=== PATIENT | female | born 1980 | race African-American/Black ===

== ENCOUNTER 2016-03-20 08:48 | Emergency (ER) | payer SELFPAY ==
[2016-03-20] MEDS ORDERED: TETRACAINE HCL 0.5% OPH SOLN 2 ML OS ONE (09:59)
--- NOTE | 2016-03-20 10:01 | ER Document Report ---
HPI - HPI Patient complains to provider of: left eye irritation Onset: Other - 2days Quality of pain: No pain Severity: None Pain Level: Denies Context: Patient presents to the emergency department with complaints of eye irritation redness for two days and matting this morning. Patient reports she was at work and possibly exposed to pinkeye. She reports she does not wear contacts or glasses. She denies other symptoms such as fever vomiting diarrhea. She denies trauma. Associated Symptoms: None Exacerbated by: Denies Relieved by: Denies Similar symptoms previously: No Recently seen / treated by doctor: No - REPRODUCTIVE Reproductive: DENIES: : - DERM Skin Color: Normal Past Medical History - General Information source: Patient - Social History Smoking Status: Current Every Day Smoker Chew tobacco use (# tins/day): No Frequency of alcohol use: None Drug Abuse: None Occupation: [employer] Lives with: Family Family History: Reviewed & Not Pertinent Patient has suicidal ideation: No Patient has homicidal ideation: No Pulmonary Medical History: Reports: Hx Asthma Renal/ Medical History: Denies: Hx Peritoneal Dialysis Past Surgical History: Reports: Hx Section, Hx Cholecystectomy, Hx Tubal Ligation - Immunizations Immunizations up to date: Yes Hx Diphtheria, Pertussis, Tetanus Vaccination: Yes Vertical Provider Document - CONSTITUTIONAL Agree With Documented VS: Yes Exam Limitations: No Limitations General Appearance: WD/WN, No Apparent Distress - INFECTION CONTROL TRAVEL OUTSIDE OF THE [place] IN LAST 30 DAYS: No - HEENT HEENT: Atraumatic, Normocephalic, PERRLA. negative: Conjuctival Injection - NECK Neck: Normal Inspection, Supple. negative: Lymphadenopathy-Left, Lymphadenopathy-Right - RESPIRATORY Respiratory: Breath Sounds Normal, No Respiratory Distress O2 Sat by Pulse Oximetry: 98 - CARDIOVASCULAR Cardiovascular: Regular Rate, Regular Rhythm - MUSCULOSKELETAL/EXTREMETIES Musculoskeletal/Extremeties: MAEW, FROM - NEURO Level of Consciousness: Awake, Alert, Appropriate Motor/Sensory: No Motor Deficit - DERM Integumentary: Warm, Dry Course - Re-evaluation Re-evalutation: 03/20/16 Beverley was instructed on erythromycin. Patient was also instructed on importance of monitoring her symptoms good hand washing and follow-up for recheck. She verbalized understanding. - Vital Signs Vital signs: Temp Pulse Resp BP Pulse Ox 97.8 F 75 20 150/82 H 98 03/20/16 08:54 03/20/16 08:54 03/20/16 08:54 03/20/16 08:54 03/20/16 08:54 Procedures - Eye Procedure Left Eye Irrigated w/ Saline (ccs): 10 Alcaine Drops Administered: Yes - tetracaine Fluorescein applied: Left Slit lamp used: No Notes: 03/20/16 17:57 No fluroscein uptake noted. pt reports eye irritation subsided after tetracaine Discharge - Discharge Clinical Impression: Irritation of left eye, elevated blood pressure Condition: Stable Disposition: HOME, SELF-CARE Instructions: Eyedrop Use ([facility]), Erythromycin ([facility]), Conjunctivitis ([facility]) Additional Instructions: *You have been evaluated for eye irritation, elevated blood pressure, bacterial conjunctivitis *Monitor your blood pressure. Your blood pressure was elevated today. This may be because you were anxious, in pain or because you need medication. It is important to follow up with your primary care provider for full evaluation. *Use erythromycin as prescribed- 1/2 inch ribbon twice a day for five days *Good hand washing- Do not reuse wash clothes or towels after wiping eyes *Follow up with an stud master/mistress within 3 days *Return to ED for worsening condition, changes, needs Forms: Elevated Blood Pressure, Return to Work
[2016-03-20] MEDS ORDERED: ERYTHROMYCIN 0.5% OPH OINTMENT 3.5 GM (ER DISP) OS SCH (10:30)
[2016-03-20 10:47] VITALS: BP 148/90
== END 2016-03-20 10:47 | disposition home or self-care (01) ==
LOC: ER 08:48
DX: H57.8 Other specified disorders of eye and adnexa (principal); R03.0 Elevated blood-pressure reading, without diagnosis of hypertension; F17.200 Nicotine dependence, unspecified, uncomplicated; Z98.51 Tubal ligation status; Z90.49 Acquired absence of other specified parts of digestive tract
CPT/HCPCS: 99283

== ENCOUNTER 2016-07-07 16:07 | Emergency (ER) | payer SELFPAY ==
[2016-07-07] MEDS ORDERED: KETOROLAC TROMETHAMINE 60 MG/2 ML SDV IM ONE (16:57)
--- NOTE | 2016-07-07 16:58 | ER Document Report ---
HPI - HPI Patient complains to provider of: right shoulder pain Onset: Yesterday Onset/Duration: Sudden Quality of pain: Achy Severity: Severe Pain Level: 4 Context: Patient presents to the emergency department with complaints of right shoulder pain. She reports she bent over to pick something up yesterday and felt pain in her right shoulder. She denies past medical history of injury to his shoulder. Patient complains of pain whenever moving the shoulder but reports at rest doesn't hurt as much. Associated Symptoms: None Exacerbated by: Movement Relieved by: Denies Similar symptoms previously: No Recently seen / treated by doctor: No - REPRODUCTIVE Reproductive: DENIES: : - DERM Skin Color: Normal Past Medical History - General Information source: Patient - Social History Smoking Status: Current Every Day Smoker Cigarette use (# per day): Yes Frequency of alcohol use: None Drug Abuse: None Occupation: [employer] Lives with: Family Family History: Reviewed & Not Pertinent Patient has suicidal ideation: No Patient has homicidal ideation: No Pulmonary Medical History: Reports: Hx Asthma Renal/ Medical History: Denies: Hx Peritoneal Dialysis Past Surgical History: Reports: Hx Section, Hx Cholecystectomy, Hx Tubal Ligation - Immunizations Immunizations up to date: Yes Hx Diphtheria, Pertussis, Tetanus Vaccination: Yes Vertical Provider Document - CONSTITUTIONAL Agree With Documented VS: Yes Exam Limitations: No Limitations, Physical Impairment General Appearance: Mild Distress - Winces when shoulder is palpated - INFECTION CONTROL TRAVEL OUTSIDE OF THE [place] IN LAST 30 DAYS: No - HEENT HEENT: Atraumatic, Normocephalic - NECK Neck: Normal Inspection, Supple. negative: Lymphadenopathy-Left, Lymphadenopathy-Right - RESPIRATORY Respiratory: Breath Sounds Normal, No Respiratory Distress O2 Sat by Pulse Oximetry: 96 - CARDIOVASCULAR Cardiovascular: Regular Rate - GI/ABDOMEN Gastrointestinal: Abdomen Soft - MUSCULOSKELETAL/EXTREMETIES Musculoskeletal/Extremeties: Tender - Right shoulder tender to palpation. Complains of pain with passive range of motion. Good radial pulse brisk cap refill no obvious deformity no swelling no erythema no warmth - NEURO Level of Consciousness: Awake, Alert, Appropriate Motor/Sensory: No Motor Deficit - DERM Integumentary: Warm, Dry Course - Re-evaluation Re-evalutation: 07/07/16 17:31 Patient instructed on Toradol and pending x-ray. 07/07/16 X-ray negative. Patient was instructed on NSAIDs explained rest importance of follow-up with orthopedic for continued pain. Patient verbalized understanding to all instructions. - Vital Signs Vital signs: Temp Pulse Resp BP Pulse Ox 98.5 F 79 18 144/75 H 96 07/07/16 16:23 07/07/16 16:23 07/07/16 16:23 07/07/16 16:23 07/07/16 16:23 - Diagnostic Test Radiology reviewed: Image reviewed, Reports reviewed - RAD/ SHOULDER RIGHT 2 OR MORE VIEWS IMPRESSION: NO RADIOGRAPHIC EVIDENCE OF ACUTE INJURY Procedures - Immobilization Right Shoulder Immobilizer type: Sling Performed by: PCT Post-Proc Neuro Vasc Exam: Unchanged from pre-exam Alignment checked and good: Yes Discharge - Discharge Clinical Impression: Right shoulder pain, Elevated blood pressure reading Disposition: HOME, SELF-CARE Instructions: Toradol Injection ([facility]), Sling as Treatment ([facility]), Ibuprofen ( General) ([facility]), Ice Packs ([facility]) Additional Instructions: *You have been evaluated for shoulder pain *Maintain the sling for three days only for comfort *Rest/Ice/Elevate *Follow up with orthopedics for evaluation within one week-call for an appointment *Take medication as prescribed *Return to ED for worsening condition, changes, needs Monitor your blood pressure. Your blood pressure was elevated today. This may be because you were anxious, in pain or because you need medication. It is important to follow up with your primary care provider for full evaluation. Prescriptions: Ibuprofen [Motrin 800 mg Tablet] 800 mg PO TID #30 tablet Forms: Elevated Blood Pressure, Return to Work Referrals: [facility] ([facility]) [Provider Group]
[2016-07-07 18:02] VITALS: BP 147/86
== END 2016-07-07 18:00 | disposition home or self-care (01) ==
LOC: ER 16:07
DX: M25.511 Pain in right shoulder (principal); R03.0 Elevated blood-pressure reading, without diagnosis of hypertension; F17.210 Nicotine dependence, cigarettes, uncomplicated; J45.909 Unspecified asthma, uncomplicated
CPT/HCPCS: 99283; 96372; 73030; J1885

== ENCOUNTER 2018-04-01 11:46 | Emergency (ER) | payer SELFPAY ==
--- NOTE | 2018-04-01 13:58 | ER Document Report ---
HPI - HPI Patient complains to provider of: shoulder pain Time Seen by Provider: 04/01/18 12:57 Onset: Other - over 7 months Onset/Duration: Persistent Quality of pain: Achy Pain Level: 3 Context: Patient presents complaining of bilateral shoulder pain with inability to raise or extend her shoulders for over the past 7 months. Patient is here with her mother who is also being seen today. Patient states she only came because her family is concerned about her symptoms and insisted that she get checked out. Patient denies any traumatic injury. Patient denies any headache neck or back pain. Associated Symptoms: Other - Bilateral shoulder pain. denies: Headache Exacerbated by: Movement Relieved by: Denies Similar symptoms previously: No Recently seen / treated by doctor: No - ROS ROS below otherwise negative: Yes Systems Reviewed and Negative: Yes All other systems reviewed and negative - CONSTITUTIONAL Constitutional: DENIES: Fever, Chills - NEURO Neurology: DENIES: Headache - CARDIOVASCULAR Cardiovascular: DENIES: Chest pain - GASTROINTESTINAL Gastrointestinal: DENIES: Nausea - REPRODUCTIVE Reproductive: DENIES: : - MUSCULOSKELETAL Musculoskeletal: REPORTS: Extremity pain - BUE. DENIES: Back Pain, Neck Pain - DERM Skin Color: Normal Skin Problems: None Past Medical History - General Information source: Patient - Social History Smoking Status: Current Every Day Smoker Chew tobacco use (# tins/day): No Smoking Education Provided: Yes Frequency of alcohol use: None Occupation: [email or web address] Lives with: Family Family History: Reviewed & Not Pertinent Patient has suicidal ideation: No Patient has homicidal ideation: No Pulmonary Medical History: Reports: Hx Asthma Renal/ Medical History: Denies: Hx Peritoneal Dialysis Past Surgical History: Reports: Hx Section, Hx Cholecystectomy, Hx Tubal Ligation - Immunizations Immunizations up to date: Yes Hx Diphtheria, Pertussis, Tetanus Vaccination: Yes Vertical Provider Document - CONSTITUTIONAL Agree With Documented VS: Yes Exam Limitations: No Limitations - INFECTION CONTROL TRAVEL OUTSIDE OF THE [place] IN LAST 30 DAYS: No - HEENT HEENT: Atraumatic, Normal ENT Exam, Normocephalic - NECK Neck: Normal Inspection, Supple. negative: Lymphadenopathy-Left, Lymphadenopathy-Right Notes: No cervical midline tenderness step-off or deformity - RESPIRATORY Respiratory: Breath Sounds Normal, No Respiratory Distress - CARDIOVASCULAR Cardiovascular: Regular Rate, Regular Rhythm, No Murmur Pulses: Normal: Radial - BACK Back: Normal Inspection Notes: No spinal midline tenderness step-off or deformity, no trapezius muscle tenderness - MUSCULOSKELETAL/EXTREMETIES Musculoskeletal/Extremeties: FROM - Patient guards but is able to be put through full passive range of motion,, Tender - Tenderness to the bilateral shoulder joints, no erythema, no callor, No Edema. negative: Eccymosis Notes: Patient able to move bilateral elbows through full range of motion without assistance, no weakness to bilateral wrist area. - NEURO Level of Consciousness: Awake, Alert, Appropriate Motor/Sensory: No Sensory Deficit - DERM Integumentary: Warm, Dry Course - Re-evaluation Re-evalutation: 04/01/18 13:[address] Rodríguez regarding patient presentation and exam find this. Given chronicity of patient's symptoms he advises outpatient follow-up with primary doctor or orthopedics for further evaluation. No additional testing recommended today. Does recommend contacting the senior planner for referral, given patient's lack of insurance and primary doctor for follow-up. - Vital Signs Vital signs: Temp Pulse Resp BP Pulse Ox 98.7 F 78 18 158/100 H 99 04/01/18 11:50 04/01/18 11:50 04/01/18 11:50 04/01/18 11:50 04/01/18 11:50 Discharge - Discharge Clinical Impression: decreased ROM to bilat shoulders Bilateral shoulder pain Qualifiers: Chronicity: chronic Qualified Code(s): M25.511 - Pain in right shoulder Condition: Stable Disposition: HOME, SELF-CARE Instructions: Anti-Inflammatory Medication ([facility]) Additional Instructions: Return immediately for any new or worsening symptoms Followup with a primary care provider, call Tuesday to make a followup appointment If you have not heard from the senior planner by 3 PM on Tuesday, you can give her a phone call. It is important that you move your shoulder joints through full range of motion either yourself or with the assistance of a family member to prevent any permanent loss of mobility. Prescriptions: Naproxen [Naprosyn 250 Nmg Tablet] 1 tab PO BID #14 tablet Forms: Smoking Cessation Education, Return to Work Referrals: [facility] [Provider Group] - Follow up as needed [facility] ([facility] [Provider Group] - Follow up as needed [facility] [Provider Group] - 04/03/18
[2018-04-01 14:39] VITALS: BP 149/98
== END 2018-04-01 14:30 | disposition home or self-care (01) ==
LOC: ER 11:46
DX: M25.511 Pain in right shoulder (principal); M25.512 Pain in left shoulder; F17.200 Nicotine dependence, unspecified, uncomplicated; J45.909 Unspecified asthma, uncomplicated
CPT/HCPCS: 99283

== ENCOUNTER 2018-11-25 08:14 | Emergency (ER) | payer SELFPAY ==
[2018-11-25 08:20] VITALS: BP 151/94
--- NOTE | 2018-11-25 09:18 | RADIOLOGY REPORT (SQ) ---
EXAM DESCRIPTION: HIP LEFT AP/LATERAL COMPLETED DATE/TIME: 11/25/2018 9:07 am REASON FOR STUDY: fall; pain with ambulation COMPARISON: None. NUMBER OF VIEWS: Four views. TECHNIQUE: AP pelvis and additional AP, lateral, frog-leg view of the left hip. LIMITATIONS: None. FINDINGS: MINERALIZATION: Normal. LEFT HIP: No fracture or dislocation. No worrisome bone lesions. RIGHT HIP: No fracture or dislocation. No worrisome bone lesions. PUBIS AND ISCHIUM: No fracture. PELVIS: No fracture. SACRUM: No fracture or dislocation. No worrisome bone lesions. LOWER LUMBAR SPINE: No fracture or dislocation. No worrisome bone lesions. No significant disc disea se. SOFT TISSUES: No findings. OTHER: No other significant finding. IMPRESSION: NEGATIVE STUDY OF THE LEFT HIP AND PELVIS. NO RADIOGRAPHIC EVIDENCE OF ACUTE INJURY. TECHNICAL DOCUMENTATION: JOB ID: [id number] [employer]- All Rights Reserved Reading location - IP/workstation name: [email or web address]
--- NOTE | 2018-11-25 09:37 | ER Document Report ---
ED General - General Chief Complaint: Fall Injury Stated Complaint: FALL/HIP PAIN Time Seen by Provider: 11/25/18 08:38 TRAVEL OUTSIDE OF THE U.S. IN LAST 30 DAYS: No - HPI Notes: Patient is a 38-year-old female who presents to the emergency department for evaluation. She states she was going to get in the bathtub when she fell. She slipped and states her feet were up above her head. She states to me that over the last 18 months her legs and knees have been "just giving out." She states she went to [facility], where they told her she needs to "see a specialist." She states she does not understand why she would need to see a specialist when no one knows is wrong. She has carpal tunnel and arthritis in her arms. She has pain "all over." She states she did hit her head with this fall, denies loss of consciousness. - Related Data Allergies/Adverse Reactions: No Known Allergies Allergy (Verified 06/23/18 10:22) Past Medical History - General Information source: Patient - Social History Smoking Status: Unknown if Ever Smoked Family History: Reviewed & Not Pertinent Patient has suicidal ideation: No Patient has homicidal ideation: No Pulmonary Medical History: Reports: Hx Asthma Renal/ Medical History: Denies: Hx Peritoneal Dialysis Past Surgical History: Reports: Hx Section, Hx Cholecystectomy, Hx Tubal Ligation - Immunizations Immunizations up to date: Yes Hx Diphtheria, Pertussis, Tetanus Vaccination: Yes Review of Systems - Review of Systems Constitutional: No symptoms reported EENT: No symptoms reported Cardiovascular: No symptoms reported Respiratory: No symptoms reported Gastrointestinal: No symptoms reported Genitourinary: No symptoms reported Musculoskeletal: See HPI Skin: No symptoms reported Neurological/Psychological: No symptoms reported Physical Exam - Vital signs Vitals: Temp Pulse Resp BP Pulse Ox 98.4 F 93 18 151/94 H 100 11/25/18 08:19 11/25/18 08:19 11/25/18 08:19 11/25/18 08:19 11/25/18 08:19 - Notes Notes: Patient is a 38-year-old female, morbidly obese, lying comfortably in the bed. She is a very flat affect, but is cooperative with examiner. Vital signs reviewed, please refer to chart. Head is normocephalic, atraumatic. Pupils equal round, reactive to light. Neck is supple without meningismus. Heart is regular rate and rhythm. Lungs are clear to auscultation bilaterally. Abdomen is soft, nontender, normoactive bowel sounds throughout. Extremities without cyanosis, clubbing. Posterior calves are nontender. Patient tender to palpation of the left greater trochanter. No obvious deformity to bilateral lower extremities. Neurovascularly intact. Patient has pain with passive range of motion of bilateral knees. Negative drawer bilaterally. Peripheral pulses are equal. Skin is warm and dry. Patient is awake, alert, neurological exam is nonfocal. Course - Re-evaluation Re-evalutation: 11/25/18 09:36 Patient presents emergency department for evaluation of hip pain after a fall. She did hit her head,. She had initial x-ray of the left hip as ordered through triage. I did add a CT scan of the head and neck. The patient received intranasal fentanyl prior to arrival, states she does not like "strong pain medications." She states she is feeling improved in regards to that. We talked about her conditions at length. I explained to her that I did believe that she would benefit from a visit with an orthopedist. Given that her knees are giving way, as well as her obesity, I do strongly suspect she may have some meniscal issues. Her carpal tunnel would certainly be something in the purview of orthopedic surgeons. Awaiting results of CT scan of head and neck, pelvis and hip films are normal. We will continue to monitor. 11/25/18 12:40 Scans unremarkable for acute findings. Patient is feeling moderately improved. I denies will refer her on to orthopedics. Dr. Rutledge is on-call today, but she [facility]. I will send her home with prescription strength anti-inflammatories and close follow-up. She is to return to the ED with worsening or new concerning symptoms of any sort. - Vital Signs Vital signs: Temp Pulse Resp BP Pulse Ox 98.4 F 93 18 151/94 H 100 11/25/18 08:19 11/25/18 08:19 11/25/18 08:19 11/25/18 08:19 11/25/18 08:19 Discharge - Discharge Clinical Impression: Contusion of left hip Qualifiers: Encounter type: initial encounter Qualified Code(s): S70.02XA - Contusion of left hip, initial encounter Bilateral knee pain Qualifiers: Chronicity: chronic Qualified Code(s): M25.561 - Pain in right knee; M25.562 - Pain in left knee; G89.29 - Other chronic pain Closed head injury Qualifiers: Encounter type: initial encounter Qualified Code(s): S09.90XA - Unspecified injury of head, initial encounter Condition: Stable Disposition: HOME, SELF-CARE Instructions: Contusion ([facility]), Knee Exercise Program ([facility]), Head Injury Precautions ([facility]) Additional Instructions: Take medication as prescribed. You need to follow-up with orthopedics, consider referral to physical therapy for further strengthening and care. Return to the ED with worsening or new concerning symptoms of any sort. Referrals: ADDY RUTLEDGE MD [ACTIVE STAFF] - Follow up as needed
--- NOTE | 2018-11-25 10:32 | RADIOLOGY REPORT (SQ) ---
EXAM DESCRIPTION: CT HEAD WITHOUT COMPLETED DATE/TIME: 11/25/2018 10:22 am REASON FOR STUDY: fall COMPARISON: None. TECHNIQUE: Axial images acquired through the brain without intravenous contrast. Images reviewed wi th bone, brain and subdural windows. Additional sagittal and coronal reconstructions were generated. Images stored on PACS. All CT scanners at this facility use dose modulation, iterative reconstruction, and/or weight based d osing when appropriate to reduce radiation dose to as low as reasonably achievable (ALARA). [facility]: Dose Right [facility]: CareDose [facility]: Dose Right [facility]: Teradose 4D [facility]: [employer] RADIATION DOSE: CT Rad equipment meets quality standard of care and radiation dose reduction techniq ues were employed. CTDIvol: 53.2 mGy. DLP: 964 mGy-cm. mGy. LIMITATIONS: None. FINDINGS: VENTRICLES: Normal size and contour. CEREBRUM: No masses. No hemorrhage. No midline shift. No evidence for acute infarction. Normal gra y/white matter differentiation. No areas of low density in the white matter. CEREBELLUM: No masses. No hemorrhage. No alteration of density. No evidence for acute infarction. EXTRAAXIAL SPACES: No fluid collections. No masses. ORBITS AND GLOBE: No intra- or extraconal masses. Normal contour of globe without masses. CALVARIUM: No fracture. PARANASAL SINUSES: No fluid or mucosal thickening. SOFT TISSUES: No mass or hematoma. OTHER: No other significant finding. IMPRESSION: NORMAL BRAIN CT WITHOUT CONTRAST. EVIDENCE OF ACUTE STROKE: NO. COMMENT: Quality ID # [id number]: Final reports with documentation of one or more dose reduction techniques (e.g., Automated exposure control, adjustment of the mA and/or kV according to patient size, use of iterative reconstruction technique) TECHNICAL DOCUMENTATION: JOB ID: [id number] [email or web address]- All Rights Reserved Reading location - IP/workstation name: [email or web address]
--- NOTE | 2018-11-25 10:33 | RADIOLOGY REPORT (SQ) ---
EXAM DESCRIPTION: CT CERVICAL SPINE WITHOUT COMPLETED DATE/TIME: 11/25/2018 10:22 am REASON FOR STUDY: fall COMPARISON: None. TECHNIQUE: Axial images acquired through the cervical spine without intravenous contrast. Images re viewed with lung, soft tissue and bone windows. Reconstructed coronal and sagittal MPR images review ed. Images stored on PACS. All CT scanners at this facility use dose modulation, iterative reconstruction, and/or weight based d osing when appropriate to reduce radiation dose to as low as reasonably achievable (ALARA). [facility]: Dose Right [facility]: CareDose [facility]: Dose Right [facility]: Teradose 4D [facility]: [employer] RADIATION DOSE: CT Rad equipment meets quality standard of care and radiation dose reduction techniq ues were employed. CTDIvol: 29.9 mGy. DLP: 578 mGy-cm. mGy. LIMITATIONS: None. FINDINGS: ALIGNMENT: Anatomic. MINERALIZATION: Normal. VERTEBRAL BODIES: No fractures or dislocation. DISCS: No significant disc disease. FACETS, LATERAL MASSES, POSTERIOR ELEMENTS: No fractures. No dislocation. No acute findings. HARDWARE: None in the spine. VISUALIZED RIBS: No fractures. LUNG APICES AND SOFT TISSUES: No significant or acute findings. OTHER: No other significant finding. IMPRESSION: NO ACUTE OR SIGNIFICANT FINDINGS IN THE CERVICAL SPINE. TECHNICAL DOCUMENTATION: JOB ID: [id number] Quality ID # [id number]: Final reports with documentation of one or more dose reduction techniques (e.g., Au tomated exposure control, adjustment of the mA and/or kV according to patient size, use of iterative reconstruction technique) 2010 [employer]- All Rights Reserved Reading location - IP/workstation name: [email or web address]
[2018-11-25] MEDS ORDERED: ACETAMINOPHEN 325 MG TABLET PO ONE (12:09)
== END 2018-11-25 13:11 | disposition home or self-care (01) ==
LOC: ER 08:14
DX: S70.02XA Contusion of left hip, initial encounter (principal); S09.90XA Unspecified injury of head, initial encounter; W01.0XXA Fall on same level from slipping, tripping and stumbling without subsequent striking against object, initial encounter; Y93.89 Activity, other specified; E66.01 Morbid (severe) obesity due to excess calories; M25.561 Pain in right knee; M25.562 Pain in left knee; G89.29 Other chronic pain; J45.909 Unspecified asthma, uncomplicated
CPT/HCPCS: 70450; 72125; 99284

== ENCOUNTER 2019-03-26 00:24 | Emergency (ER) | payer SELFPAY ==
--- NOTE | 2019-03-26 01:34 | RADIOLOGY REPORT (SQ) ---
CLINICAL HISTORY: CP COMPARISON: None. TECHNIQUE: XR CHEST 1 VIEW 03/26/2019 1:01 AM DIGITAL SALES ASSISTANT FINDINGS: The heart is mildly enlarged. Lungs are clear without consolidation, atelectasis, mass or edema. There is no pleural effusion. There is no pneumothorax. There are no acute osseous findings. Right diaphragm is elevated. IMPRESSION: Clear lungs.
[2019-03-26 01:50] LABS: ABSOLUTE BASOPHILS # (AUTO) 0.1 10^3/uL (0.0-0.2); ABSOLUTE EOSINOPHILS # (AUTO) 0.3 10^3/uL (0.0-0.6); ABSOLUTE LYMPHOCYTES (AUTO) 1.8 10^3/uL (0.5-4.7); ABSOLUTE MONOCYTES (AUTO) 0.6 10^3/uL (0.1-1.4); HEMOGLOBIN 9.1 g/dL (12.0-15.5); LYMPHOCYTES % (AUTO) 17.9 % (13-45); MEAN CORPUSCULAR HEMOGLOBIN 24.8 pg (27.0-33.4); MEAN CORPUSCULAR HGB CONC 31.5 g/dL (32.0-36.0); MEAN CORPUSCULAR VOLUME 79 fl (80-97); MONOCYTES % (AUTO) 6.5 % (3-13); PLATELET COUNT 323 10^3/uL (150-450); RED CELL DISTRIBUTION WIDTH 18.5 % (11.5-14.0); SEGMENTED NEUTROPHILS % (AUTO) 71.6 % (42-78); TOTAL CELLS COUNTED % (AUTO) 100 %; WHITE BLOOD COUNT 9.8 10^3/uL (4.0-10.5)
[2019-03-26 02:34] LABS: ALBUMIN 3.8 g/dL (3.5-5.0); ALKALINE PHOSPHATASE 83 U/L (38-126); ANION GAP 7 (5-19); ASPARTATE AMINO TRANSFERASE 22 U/L (14-36); BILIRUBIN,DIRECT 0.2 mg/dL (0.0-0.4); BILIRUBIN,TOTAL 0.3 mg/dL (0.2-1.3); BLOOD UREA NITROGEN 10 mg/dL (7-20); CALCIUM 9.2 mg/dL (8.4-10.2); CARBON DIOXIDE 26 mmol/L (22-30); CHLORIDE 110 mmol/L (98-107); CREATINE KINASE 327 U/L (30-135); GLUCOSE 101 mg/dL (75-110); POTASSIUM 4.1 mmol/L (3.6-5.0); TOTAL PROTEIN 7.2 g/dL (6.3-8.2)
[2019-03-26 02:56] LABS: CREATINE KINASE MB 4.45 ng/mL (<4.55)
[2019-03-26 02:58] LABS: TROPONIN I < 0.012 ng/mL
[2019-03-26] MEDS ORDERED: NORMAL SALINE 500 ML IV PRN (03:32)
--- NOTE | 2019-03-26 03:39 | ER Document Report ---
ED Cardiac - General Chief Complaint: Chest Pain > 30 Stated Complaint: CHEST PAIN Time Seen by Provider: 03/26/19 03:00 Notes: Patient is a 38-year-old female who presents to the emergency department with a chief complaint of chest pain. Patient states that her pain is midsternal. It does not radiate. She states that it started around 2300 tonight. States that she has a family history of MIs in the past. Her mother also just recently about a year ago. Patient is an everyday smoker. Since Elian time, she has had increased swelling and bilateral legs. Patient states that she does not walk around very much. She is also being seen by a doctor for increased weakness in bilateral arms. TRAVEL OUTSIDE OF THE [place] IN LAST 30 DAYS: No - Related Data Allergies/Adverse Reactions: No Known Allergies Allergy (Verified 06/23/18 10:22) Past Medical History - Social History Smoking Status: Current Every Day Smoker Family History: Reviewed & Not Pertinent Patient has suicidal ideation: No Patient has homicidal ideation: No Pulmonary Medical History: Reports: Hx Asthma Renal/ Medical History: Denies: Hx Peritoneal Dialysis Past Surgical History: Reports: Hx Section, Hx Cholecystectomy, Hx Tubal Ligation - Immunizations Immunizations up to date: Yes Hx Diphtheria, Pertussis, Tetanus Vaccination: Yes Review of Systems - Review of Systems Notes: REVIEW OF SYSTEMS: CONSTITUTIONAL : Denies recent illness. Denies recent unintentional weight loss. Denies fever, chills, or sweats. EENT: Denies eye, ear, throat, or mouth pain, discharge, or symptoms. Denies nasal or sinus congestion. CARDIOVASCULAR: See HPI. RESPIRATORY: Denies shortness of breath, cough, congestion, difficulty breathing, or wheezing. GASTROINTESTINAL: Denies nausea, vomiting, and diarrhea. Denies abdominal pain. Denies constipation. GENITOURINARY: Denies difficulty urinating, burning, blood in urine, urgency or frequency. MUSCULOSKELETAL: Denies neck and back pain. Denies joint pain or swelling. SKIN: Denies rash, itchiness, or lesions HEMATOLOGIC : Denies easy bruising or bleeding. LYMPHATIC: Denies swollen, painful, enlarged glands. NEUROLOGICAL: Denies no numbness or tingling denies weakness. Denies headache. Denies altered mental status. Denies alteration in speech. PSYCHIATRIC: Denies stress, anxiety, alteration in sleep patterns, or depression. All other systems reviewed and negative. Physical Exam - Vital signs Vitals: Resp Pulse Ox 21 H 99 03/26/19 00:49 03/26/19 00:49 - Notes Notes: PHYSICAL EXAMINATION: GENERAL: Appears obese, no acute distress. HEAD: Normocephalic, atraumatic. EYES: PERRL, conjunctiva normal, all extraocular movements intact, sclera nonicteric ENT: Moist mucous membranes. NECK: Supple, no noticeable swelling, redness, rash. Normal range of motion. LUNGS: Equal breath sounds bilaterally and clear to auscultation. No wheezes rales or rhonchi. CARDIOVASCULAR: S1-S2, regular rate, regular rhythm. Radial pulses 2+, normal. ABDOMEN: Normoactive bowel sounds. Soft, nontender, no guarding, no rebound te nderness, and no masses palpated. EXTREMITIES: 3+ pitting edema to bilateral lower extremities. No cyanosis. NEUROLOGICAL: Moves all extremities upon command. Strength 5/5 in all extremities. PSYCH: Normal mood, normal affect. SKIN: Warm, dry. No rash, lesions, ulcerations noted. Normal skin turgor. Course - Re-evaluation Re-evalutation: 03/26/19 07:27 CTA of the chest shows atelectasis in the right lower lobe. Patient second troponin is negative. At this time, patient is stable for discharge. I discussed all findings with the patient. We will give her an incentive spirometer for her atelectasis. I instructed her to make sure she takes good deep breaths and prevent pneumonia. She is in agreement with this plan. She will also go home with LAURA quiñonez. Follow-up precautions were given. Verbal discharge instructions were given to the patient. They verbalized understanding. They are stable for discharge. - Vital Signs Vital signs: Temp Pulse Resp BP Pulse Ox 98.0 F 83 27 H 141/74 H 100 03/26/19 07:02 03/26/19 01:02 03/26/19 07:02 03/26/19 07:02 03/26/19 07:02 - Laboratory Result Diagrams: 03/26/19 01:35 03/26/19 01:35 Laboratory results interpreted by me: 03/26/19 03/26/19 01:35 01:35 RBC 3.70 L Hgb 9.1 L Hct 29.0 L MCV 79 L MCH 24.8 L MCHC 31.5 L RDW 18.5 H Chloride 110 H Creatinine 0.40 L Creatine Kinase 327 H - EKG Interpretation by Me Additional EKG results interpreted by me: 03/26/19 Initial EKG interpretation showed a flutter/A. fib with complete heart block, but there was a multitude of artifact. It is difficult to interpret the first EKG. Second EKG was done and it shows sinus rhythm with a rate of 80. WI 160; QRS 84; QT 376; QTc 434. No ST elevations or depressions noted. I do not suspect the patient has atrial fibrillation or atrial flutter. She is obese and the voltage on the EKG is not well due to the patient's size. Discharge - Discharge Clinical Impression: Chest pain Qualifiers: Chest pain type: unspecified Qualified Code(s): R07.9 - Chest pain, unspecified Condition: Stable Disposition: HOME, SELF-CARE Additional Instructions: You were seen today for chest pain. The exact cause of your pain is unclear. However, based on your cardiac enzyme testing, chest x-ray, CT and EKG it does not appear that it is from an immediately life-threatening cause at this time. Although your testing here is normal is critical that you follow-up with your primary care physician for continued evaluation. Please return to emergency department immediately if you have worsening of your chest pain, shortness of breath, vomiting, become unable to exert yourself due to pain or difficulty breathing, you pass out, or have any pain that radiates into your arms, jaw, or back. Please also return if you have any additional symptoms that are concerning to you. You are also being sent home with an incentive spirometer. This will help you prevent pneumonia. You are also being sent home with LAURA hose to help with the swelling in your legs.
--- NOTE | 2019-03-26 05:21 | RADIOLOGY REPORT (SQ) ---
EXAM DESCRIPTION: CT CHEST ANGIOGRAPHY WITHOUT THEN WITH IV CONTRAST COMPLETED DATE/TME: 03/26/2019 03:33 CLINICAL HISTORY: 38 years, Female, chest pain COMPARISON: None. TECHNIQUE: 565 Images stored on PACS. All CT scanners at this facility use dose modulation, iterative reconstruction, and/or weight based dosing when appropriate to reduce radiation dose to as low as reasonably achievable (ALARA). Axial CTA images with coronal and sagittal MIPS [facility]: Dose Right [facility]: CareDose [facility]: Dose Right [facility]: Teradose 4D [facility]: [employer] LIMITATIONS: None. FINDINGS: There is significant artifact limiting the exam, with a large portion of the contrast bolus in the superior vena cava. No convincing evidence for pulmonary embolus. No large or central pulmonary most. Negative for thoracic aortic aneurysm or dissection. Heart is mildly enlarged. No mediastinal or hilar adenopathy. Limited evaluation of the upper abdomen shows postcholecystectomy changes. Marked elevation of the right hemidiaphragm. Osseous structures are grossly intact. Subsegmental atelectasis in the right lung base. No pneumothorax IMPRESSION: Negative for pulmonary embolus. Marked elevation of the right hemidiaphragm. Adjacent subsegmental atelectasis TECHNICAL DOCUMENTATION: Quality ID # 436: Final reports with documentation of one or more dose reduction techniques (e.g., Automated exposure control, adjustment of the mA and/or kV according to patient size, use of iterative reconstruction technique) copyright 2011 [employer]- All Rights Reserved
--- NOTE | 2019-03-26 06:31 | EKG REPORT ---
SEVERITY:- ABNORMAL ECG - SINUS RHYTHM 90 LVH BY VOLTAGE : Confirmed by: Nader Schmidt MD 26-Mar-2019 06:30:56
--- NOTE | 2019-03-26 09:16 | EKG REPORT ---
SEVERITY:- ABNORMAL ECG - SINUS OR ECTOPIC ATRIAL RHYTHM BORDERLINE LEFT AXIS DEVIATION NONSPECIFIC T ABNORMALITIES, ANT-LAT LEADS : Confirmed by: Danisha Chavez 26-Mar-2019 09:15:55
[2019-03-26 16:37] VITALS: BP 150/77
== END 2019-03-26 08:20 | disposition home or self-care (01) ==
LOC: ER 00:24
DX: R07.9 Chest pain, unspecified (principal); M79.89 Other specified soft tissue disorders; F17.200 Nicotine dependence, unspecified, uncomplicated; Z90.49 Acquired absence of other specified parts of digestive tract; Z98.51 Tubal ligation status
CPT/HCPCS: 93005; 99285; 96360; 36415; 82553; 82550; 83690; 85025; 80053; 84484; 83880; 71045; 71275; 93010; J7040

== ENCOUNTER 2019-04-23 13:24 | Emergency (ER) | payer SELFPAY ==
--- NOTE | 2019-04-23 14:15 | ER Document Report ---
ED Medical Screen (RME) - General Chief Complaint: Fall Stated Complaint: FALL GENERAL WEAKNESS Time Seen by Provider: 04/23/19 14:11 TRAVEL OUTSIDE OF THE [place] IN LAST 30 DAYS: No - HPI Notes: 04/23/19 14:15 Patient is a 38-year-old female who presents complaining of fall today at home. Patient states that she tripped and fell forward landing on the ground. She did not have any loss of consciousness or nausea/vomiting. Patient states that she has a mild headache and overall feels generally weak. She has been having chronic issues with her arms for over a year which is not new for her. She is also had swelling in her legs since January. Denies drug allergies. No fever, URI, chest pain, shortness of breath, abdominal pain, nausea/vomiting, dysuria. I have treated and performed a rapid initial assessment of this patient. A comprehensive ED assessment and evaluation of the patient, analysis of test results and completion of medical decision making process will be conducted by additional ED providers. PHYSICAL EXAMINATION: GENERAL: Well-appearing, well-nourished and in no acute distress. A&Ox4. Answers questions appropriately. Head: Atraumatic, no cronin sign or bogginess Ears: No hemotympanum Eyes: No raccoon eyes, PERRLA, EOMI bilaterally. Neck: Mild tenderness mostly to the right side of the neck. Neuro: GCS 15, cranial nerves grossly intact. - Related Data Allergies/Adverse Reactions: No Known Allergies Allergy (Verified 06/23/18 10:22) Past Medical History Pulmonary Medical History: Reports: Hx Asthma Renal/ Medical History: Denies: Hx Peritoneal Dialysis Past Surgical History: Reports: Hx Section, Hx Cholecystectomy, Hx Tubal Ligation - Immunizations Immunizations up to date: Yes Hx Diphtheria, Pertussis, Tetanus Vaccination: Yes
[2019-04-23 15:00] LABS: ABSOLUTE BASOPHILS # (AUTO) 0.1 10^3/uL (0.0-0.2); ABSOLUTE EOSINOPHILS # (AUTO) 0.2 10^3/uL (0.0-0.6); ABSOLUTE LYMPHOCYTES (AUTO) 1.6 10^3/uL (0.5-4.7); ABSOLUTE MONOCYTES (AUTO) 0.5 10^3/uL (0.1-1.4); ABSOLUTE NEUT (AUTO) 6.9 10^3/uL (1.7-8.2); BASOPHILS % (AUTO) 0.8 % (0-2); EOSINOPHILS % (AUTO) 2.6 % (0-6); HEMATOCRIT 29.3 % (36.0-47.0); HEMOGLOBIN 9.5 g/dL (12.0-15.5); LYMPHOCYTES % (AUTO) 17.2 % (13-45); MEAN CORPUSCULAR HEMOGLOBIN 24.9 pg (27.0-33.4); MEAN CORPUSCULAR HGB CONC 32.5 g/dL (32.0-36.0); MEAN CORPUSCULAR VOLUME 76 fl (80-97); PLATELET COUNT 427 10^3/uL (150-450); RED BLOOD COUNT 3.84 10^6/uL (3.72-5.28); RED CELL DISTRIBUTION WIDTH 18.7 % (11.5-14.0); SEGMENTED NEUTROPHILS % (AUTO) 74.4 % (42-78); TOTAL CELLS COUNTED % (AUTO) 100 %; WHITE BLOOD COUNT 9.3 10^3/uL (4.0-10.5)
[2019-04-23 15:16] LABS: ALBUMIN 4.2 g/dL (3.5-5.0); ALKALINE PHOSPHATASE 98 U/L (38-126); ANION GAP 8 (5-19); ASPARTATE AMINO TRANSFERASE 24 U/L (14-36); BILIRUBIN,DIRECT 0.3 mg/dL (0.0-0.4); BILIRUBIN,TOTAL 0.5 mg/dL (0.2-1.3); BLOOD UREA NITROGEN 8 mg/dL (7-20); CALCIUM 9.5 mg/dL (8.4-10.2); CARBON DIOXIDE 27 mmol/L (22-30); CHLORIDE 106 mmol/L (98-107); GLUCOSE 89 mg/dL (75-110); TOTAL PROTEIN 7.9 g/dL (6.3-8.2)
--- NOTE | 2019-04-23 15:28 | RADIOLOGY REPORT (SQ) ---
EXAM DESCRIPTION: CT HEAD WITHOUT COMPLETED DATE/TIME: 04/23/2019 3:00 pm REASON FOR STUDY: fall/injury COMPARISON: CT of the head without contrast from 11/25/2018. TECHNIQUE: Axial images acquired through the brain without intravenous contrast. Images reviewed wi th bone, brain and subdural windows. Additional sagittal and coronal reconstructions were generated. Images stored on PACS. All CT scanners at this facility use dose modulation, iterative reconstruction, and/or weight based d osing when appropriate to reduce radiation dose to as low as reasonably achievable (ALARA). [facility]: Dose Right [facility]: CareDose [facility]: Dose Right [facility]: Teradose 4D [facility]: 3Touch RADIATION DOSE: CT Rad equipment meets quality standard of care and radiation dose reduction techniq ues were employed. CTDIvol: 53.2 mGy. DLP: 1017 mGy-cm. LIMITATIONS: None. FINDINGS: There is no acute intracranial hemorrhage, vascular territorial infarct, extra-axial fluid collection, mass effect or midline shift. There is no effacement of the cerebral sulci or basal sub arachnoid cisterns. The ac-white matter differentiation is preserved. The caliber the ventricles is concordant with the degree of sulcation. The orbits and globes are intact. The paranasal sinuses are clear. There is no fracture of the calv arium. IMPRESSION: No acute intracranial abnormality. EVIDENCE OF ACUTE STROKE: NO. COMMENT: Quality ID # 436: Final reports with documentation of one or more dose reduction techniques (e.g., Automated exposure control, adjustment of the mA and/or kV according to patient size, use of iterative reconstruction technique) TECHNICAL DOCUMENTATION: JOB ID: [id number] 2010 [employer]- All Rights Reserved Reading location - IP/workstation name: [email or web address]
--- NOTE | 2019-04-23 15:30 | RADIOLOGY REPORT (SQ) ---
EXAM DESCRIPTION: CT CERVICAL SPINE WITHOUT COMPLETED DATE/TIME: 04/23/2019 3:00 pm REASON FOR STUDY: fall/injury COMPARISON: CT of the cervical spine from 11/25/2018. TECHNIQUE: Axial images acquired through the cervical spine without intravenous contrast. Images re viewed with lung, soft tissue and bone windows. Reconstructed coronal and sagittal MPR images review ed. Images stored on PACS. All CT scanners at this facility use dose modulation, iterative reconstruction, and/or weight based d osing when appropriate to reduce radiation dose to as low as reasonably achievable (ALARA). [facility]: Dose Right [facility]: CareDose [facility]: Dose Right [facility]: Teradose 4D [facility]: [employer] RADIATION DOSE: CT Rad equipment meets quality standard of care and radiation dose reduction techniq ues were employed. CTDIvol: 27.8 mGy. DLP: 491 mGy-cm. LIMITATIONS: None. FINDINGS: ALIGNMENT: There is straightening of the normal lordotic curvature of the cervical spine. There is no craniocervical or atlantoaxial dissociation. MINERALIZATION: Normal. VERTEBRAL BODIES: The cervical vertebral body heights are preserved. There is no fracture. DISCS: The C5-C6 and C6-C7 intervertebral disc spaces are narrowed and there are anterolateral osteop hytes. Evaluation of the spinal canal for stenosis is limited due to beam hardening artifact. FACETS, LATERAL MASSES, POSTERIOR ELEMENTS: No acute fracture or malalignment. HARDWARE: None in the spine. VISUALIZED RIBS: No fractures. LUNG APICES AND SOFT TISSUES: No acute findings. OTHER: No other finding. IMPRESSION: No acute fracture or malalignment of the cervical spine. TECHNICAL DOCUMENTATION: JOB ID: [id number] Quality ID # 436: Final reports with documentation of one or more dose reduction techniques (e.g., Au tomated exposure control, adjustment of the mA and/or kV according to patient size, use of iterative reconstruction technique) 2010 [employer]- All Rights Reserved Reading location - IP/workstation name: [email or web address]
--- NOTE | 2019-04-23 15:32 | RADIOLOGY REPORT (SQ) ---
EXAM DESCRIPTION: CHEST SINGLE VIEW COMPLETED DATE/TIME: 04/23/2019 3:09 pm REASON FOR STUDY: LE edema, weakness COMPARISON: AP view of the chest from 03/26/2019 EXAM PARAMETERS: NUMBER OF VIEWS: One view. TECHNIQUE: An AP view of the chest was obtained. RADIATION DOSE: NA LIMITATIONS: None. FINDINGS: LUNGS AND PLEURA: Low inspiratory lung volumes without a superimposed consolidation, pleur al effusion or pneumothorax. MEDIASTINUM AND HILAR STRUCTURES: No mediastinal or hilar contour abnormality. HEART AND VASCULAR STRUCTURES: The cardiac silhouette and pulmonary vasculature are within normal amaya its. BONES: No acute findings. HARDWARE: None in the chest. OTHER: No other finding. IMPRESSION: Low inspiratory lung volumes without a superimposed acute cardiopulmonary process. TECHNICAL DOCUMENTATION: JOB ID: [id number] 2010 [employer]- All Rights Reserved Reading location - IP/workstation name: [email or web address]
[2019-04-23] MEDS ORDERED: HYDROCODONE/ACETAMINOPHEN 5-325 MG TABLET PO ONE (17:39)
[2019-04-23 17:43] LABS: APPEARANCE,URINE SLIGHTLY-CLOUDY; BILIRUBIN,URINE NEGATIVE (NEGATIVE); COLOR,URINE YELLOW; GLUCOSE, URINE NEGATIVE (NEGATIVE); KETONES,URINE TRACE mg/dL (NEGATIVE); PROTEIN,URINE NEGATIVE (NEGATIVE); URINE SPECIFIC GRAVITY 1.012; UROBILINOGEN,URINE NEGATIVE mg/dL (<2.0)
--- NOTE | 2019-04-23 18:55 | ER Document Report ---
ED Dizziness/Weakness - General Chief Complaint: General Weakness Stated Complaint: FALL GENERAL WEAKNESS Time Seen by Provider: 04/23/19 14:11 Mode of Arrival: Ambulatory Information source: Patient TRAVEL OUTSIDE OF THE [place] IN LAST 30 DAYS: No - HPI Notes: Patient presents complaining of generalized weakness. She states she has had this for over 1 year and has been to multiple doctors with no diagnosis. She states today she was on her way to the bathroom and due to her weakness she had a fall. She states in the fall she injured her lip her face and her knees. She states that she has been unable to move her upper arms for approximately 1 year. She can move the hands and wrist but cannot lift her arms over her head. She has had no fevers. No vomiting or diarrhea. She states she does not have insurance or primary care doctor at this time. She states she has some generalized body aches in the fall. They are mild to moderate. They are constant. They are worse with movement and better with rest. They radiate throughout her body. - Related Data Allergies/Adverse Reactions: No Known Allergies Allergy (Verified 06/23/18 10:22) Past Medical History - General Information source: Patient - Social History Smoking Status: Never Smoker Frequency of alcohol use: None Drug Abuse: None Family History: Reviewed & Not Pertinent Patient has suicidal ideation: No Patient has homicidal ideation: No Pulmonary Medical History: Reports: Hx Asthma Renal/ Medical History: Denies: Hx Peritoneal Dialysis Past Surgical History: Reports: Hx Section, Hx Cholecystectomy, Hx Tubal Ligation - Immunizations Immunizations up to date: Yes Hx Diphtheria, Pertussis, Tetanus Vaccination: Yes Review of Systems - Review of Systems Constitutional: Malaise, Weakness. denies: Chills, Fever Cardiovascular: denies: Chest pain, Palpitations Respiratory: denies: Cough, Short of breath -: Yes All other systems reviewed and negative Physical Exam - Vital signs Interpretation: Normal - General General appearance: Appears well, Alert - HEENT Head: Normocephalic, Atraumatic Eyes: Normal Pupils: PERRL - Respiratory Respiratory status: No respiratory distress Chest status: Nontender Breath sounds: Normal Chest palpation: Normal - Cardiovascular Rhythm: Regular Heart sounds: Normal auscultation Murmur: No - Abdominal Inspection: Normal Distension: No distension Bowel sounds: Normal Tenderness: Nontender Organomegaly: No organomegaly - Back Back: Normal, Nontender - Extremities General upper extremity: Normal inspection, Nontender, Normal color, Normal ROM, Normal temperature General lower extremity: Normal inspection, Nontender, Normal color, Normal ROM, Normal temperature, Normal weight bearing. No: Francisco J's sign - Neurological Neuro grossly intact: Yes Cognition: Normal Orientation: AAOx4 Karen Coma Scale Eye Opening: Spontaneous Karen Coma Scale Verbal: Oriented Karen Coma Scale Motor: Obeys Commands [place] Coma Scale Total: 15 Speech: Normal Additional motor exam normals: Other - Patient can move the hands and wrists bilaterally but states that she does not have any strength in the upper part of the arms. Sensory: Normal - Psychological Associated symptoms: Normal affect, Normal mood - Skin Skin Temperature: Warm Skin Moisture: Dry Skin Color: Normal Course - Re-evaluation Re-evalutation: 04/23/19 18:49 Patient presents with weakness for 1 year and a fall. There does not appear to any acute injuries in the fall. As for patient's weakness no obvious source is present at this time. There does not appear to be an infection. She is got some mild anemia but this would not explain this degree of weakness. I am going to refer her to the [facility] since she does not have insurance. Patient's head CT is negative and her symptoms do not appear consistent with stroke. I will treat the patient's anemia with iron pills. - Laboratory Result Diagrams: 04/23/19 14:45 04/23/19 14:45 Laboratory results interpreted by me: 04/23/19 04/23/19 04/23/19 14:45 14:45 17:16 Hgb 9.5 L Hct 29.3 L MCV 76 L MCH 24.9 L RDW 18.7 H Creatinine 0.32 L Urine Ketones TRACE H Urine Blood MODERATE H - Diagnostic Test Radiology reviewed: Image reviewed, Reports reviewed Discharge - Discharge Clinical Impression: Weakness Fall Qualifiers: Encounter type: initial encounter Qualified Code(s): W19.XXXA - Unspecified fall, initial encounter Knee contusion Qualifiers: Encounter type: initial encounter Laterality: right Qualified Code(s): S80.01XA - Contusion of right knee, initial encounter Condition: Stable Disposition: HOME, SELF-CARE Instructions: Weakness ([facility]) Additional Instructions: Please call [facility] as soon as possible Referrals: [facility] [Provider Group] - Follow up in 1 week
[2019-04-23 19:07] VITALS: BP 145/84
== END 2019-04-23 19:45 | disposition home or self-care (01) ==
LOC: ER 13:24
DX: S80.01XA Contusion of right knee, initial encounter (principal); R53.1 Weakness; W19.XXXA Unspecified fall, initial encounter; Z90.49 Acquired absence of other specified parts of digestive tract; Z98.51 Tubal ligation status
CPT/HCPCS: 36415; 70450; 71045; 72125; 80053; 81001; 83880; 85025; 99284

== ENCOUNTER → 2019-09-06 | Outpatient (CLI) | payer MEDICAID ==
--- NOTE | 2019-09-06 16:07 | RADIOLOGY REPORT (SQ) ---
EXAM DESCRIPTION: MRI CERVICAL SPINE WITHOUT IMAGES COMPLETED DATE/TIME: 09/06/2019 12:14 pm REASON FOR STUDY: QUADRIPLEGIA, UNSPEC (G82.50), SPINAL STENOSIS (M48.00) G82.50 QUADRIPLEGIA, UNSP ECIFIED COMPARISON: 04/23/2019 and 11/25/2018 TECHNIQUE: Sagittal and Axial imaging includes T1, T2, STIR and gradient echo sequences. LIMITATIONS: Inability to use proper coronal due to body habitus results in large field of view and diminished spatial resolution. FINDINGS: ALIGNMENT: Relative straightening of the normal lordotic curvature appears to be on the ba sis of patient positioning. VERTEBRAE: Intact. BONE MARROW: Exam DISCS: Mild disc desiccation and loss of height are seen at the C4 through C7 levels. HARDWARE: None in the spine. CORD AND BASE OF BRAIN: Normal in size and signal intensity. SOFT TISSUES: No soft tissue masses. C1-C2: No significant spinal stenosis. C2-C3: No significant spinal stenosis or exit foraminal stenosis. C3-C4: No significant spinal stenosis or exit foraminal stenosis. C4-C5: Mild right uncovertebral hypertrophy results in mild right neural foraminal narrowing. The ce ntral canal and left neural foramen remain widely patent. C5-C6: Mild right uncovertebral hypertrophy results in mild right neural foraminal narrowing. The ce ntral canal and left neural foramen remain widely patent. C6-C7: No significant spinal stenosis or exit foraminal stenosis. Incidental note is made of a tiny left perineural sleeve cyst. C7-T1: No significant spinal stenosis or exit foraminal stenosis. Incidental note is made of a promi nent right perineural sleeve cyst. UPPER THORACIC: Incompletely imaged. No significant spinal stenosis or exit foraminal stenosis. OTHER: No other significant finding. IMPRESSION: Trace degenerative changes without significant central canal or neural foraminal stenosi s. 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 TECHNICAL DOCUMENTATION: JOB ID: [id number] 2010 [employer]- All Rights Reserved Reading location - IP/workstation name: [email or web address]
== END ==
LOC: RAD 10:48
PROVIDERS: ATTEND Internal Medicine
DX: G82.50 Quadriplegia, unspecified (principal); M48.02 Spinal stenosis, cervical region
CPT/HCPCS: 72141

== ENCOUNTER 2019-10-01 01:28 | Emergency (ER) | payer MEDICAID ==
[2019-10-01] MEDS ORDERED: HYDROCODONE/ACETAMINOPHEN 5-325 MG TABLET PO ONE (03:11)
--- NOTE | 2019-10-01 03:12 | ER Document Report ---
HPI - HPI Time Seen by Provider: 10/01/19 01:45 Pain Level: 5 Notes: Patient is a 38-year-old female presents emergency department chief complaint of upper and lower extremity pain. Patient reports she is currently under the treatment of a neurologist as she states over the last several years she has slowly lost function of her upper and lower extremities. She states that she has feeling in these but she is unable to bear weight on her legs and she is unable to use her arms for anything. She requires total care at home. Patient is alert, oriented, stating that she is having increased pain from her baseline. Patient denies any recent trauma, denies any recent illness. She is requesting an x-ray of her right ankle as she states when her daughter's transfer her from the bed to the wheelchair sometimes her ankle gets twisted. - RESPIRATORY Respiratory: REPORTS: Trouble Breathing - REPRODUCTIVE Reproductive: DENIES: : - MUSCULOSKELETAL Musculoskeletal: REPORTS: Extremity pain Past Medical History - General Information source: Patient - Social History Smoking Status: Never Smoker Frequency of alcohol use: None Drug Abuse: None Family History: Reviewed & Not Pertinent Pulmonary Medical History: Reports: Hx Asthma Renal/ Medical History: Denies: Hx Peritoneal Dialysis Past Surgical History: Reports: Hx Section, Hx Cholecystectomy, Hx Tubal Ligation - Immunizations Immunizations up to date: Yes Hx Diphtheria, Pertussis, Tetanus Vaccination: Yes Vertical Provider Document - CONSTITUTIONAL Notes: PHYSICAL EXAMINATION: GENERAL: Obese. HEAD: Atraumatic, normocephalic. EYES: Pupils equal round and reactive to light, extraocular movements intact, conjunctiva are normal. ENT: Nares patent, oropharynx clear without exudates. Moist mucous membranes. NECK: Normal range of motion, supple without lymphadenopathy LUNGS: Breath sounds clear to auscultation bilaterally and equal. No wheezes rales or rhonchi. HEART: Regular rate and rhythm without murmurs ABDOMEN: Soft, nontender, nondistended abdomen. No guarding, no rebound. No masses appreciated. Female : deferred Musculoskeletal: Normal range of motion, no pitting or edema. No cyanosis. NEUROLOGICAL: Cranial nerves grossly intact. Normal speech. Normal sensory, abnormal motor exams, patient unable to hold up upper or lower extremities. PSYCH: Normal mood, normal affect. SKIN: Warm, Dry, normal turgor, no rashes or lesions noted. - INFECTION CONTROL TRAVEL OUTSIDE OF THE [place] IN LAST 30 DAYS: No Course - Re-evaluation Re-evalutation: Patient's ankle x-ray was negative. Patient was given [place] while here in the emergency department, this helped with her pain. She will be discharged with a prescription for same. She has an appointment with her neurologist later this week, she will follow-up with them for longer term plan for pain management. - Vital Signs Vital signs: Temp Pulse Resp BP Pulse Ox 98.1 F 26 H 154/76 H 100 10/01/19 02:02 10/01/19 02:02 10/01/19 02:02 10/01/19 02:02 Discharge - Discharge Clinical Impression: Pain Condition: Stable Disposition: HOME, SELF-CARE Additional Instructions: Please take medication as prescribed. Please keep any and all follow-up appointments with your primary care team and your neurologist. Return to the emergency department for any new or worsening concerns. I did convey your concerns about your recent trip to our facility to the patient advocacy team. Prescriptions: Hydrocodone/Acetaminophen [[place] 5-325 mg Tablet] 1 tab PO Q6HP PRN #12 tablet PRN Reason: Referrals: ANTONIO JALLOH MD [Primary Care Provider] - Follow up as needed
--- NOTE | 2019-10-01 03:20 | RADIOLOGY REPORT (SQ) ---
CLINICAL INDICATION: pain. . TECHNIQUE: 3 view(s) were obtained of the right ankle. COMPARISON: None. FINDINGS: No acute displaced fracture is identified of the ankle. Alignment appears anatomic. Joint spaces are within normal limits for age. Soft tissue swelling. IMPRESSION: No evidence of acute displaced fracture of the ankle.
[2019-10-01 10:19] VITALS: BP 115/60
== END 2019-10-01 10:18 | disposition home or self-care (01) ==
LOC: ER 01:28
DX: M79.605 Pain in left leg (principal); M79.604 Pain in right leg; M79.602 Pain in left arm; M79.601 Pain in right arm; E66.9 Obesity, unspecified
CPT/HCPCS: 99283

== ENCOUNTER 2019-12-03 23:51 | Emergency (ER) | payer MEDICAID ==
--- NOTE | 2019-12-04 00:21 | ER Document Report ---
ED General - General Chief Complaint: Chest Pain Stated Complaint: CHEST PAIN AND DIFFICULTY BREATHING Time Seen by Provider: 12/04/19 00:20 Primary Care Provider: ANTONIO JALLOH MD [Primary Care Provider] - Follow up as needed TRAVEL OUTSIDE OF THE [place] IN LAST 30 DAYS: No - HPI Notes: 39-year-old female presents with shortness of breath and chest tightness. Patient states that earlier this evening around 8 PM she had complained to her daughter that she was having problems breathing and some generalized chest tightness. She states that she was laying in her new hospital bed during this conversation. Patient states that the next thing she knew she woke up and the next thing she knew she was being loaded on a stretcher. She received sublingual nitro x3 and 324 mg aspirin with EMS. She reports she is feeling much better currently. She states she does have some dizziness but it is better if she sits up. Patient states she is being worked up for neuromuscular disorder, she has not appointment at [facility] . Patient is not paralyzed, however she is unable to walk due to leg weakness and frequent falls, she is able to move her legs. She reports that she has chronic lower leg edema, but it is better now that she has had her legs elevated. She denies any sort of recent cardiac work-up. - Related Data Allergies/Adverse Reactions: No Known Allergies Allergy (Verified 06/23/18 10:22) Past Medical History - General Information source: Patient - Social History Smoking Status: Unknown if Ever Smoked Family History: Reviewed & Not Pertinent Pulmonary Medical History: Reports: Hx Asthma Renal/ Medical History: Denies: Hx Peritoneal Dialysis Past Surgical History: Reports: Hx Section, Hx Cholecystectomy, Hx Tubal Ligation - Immunizations Immunizations up to date: Yes Hx Diphtheria, Pertussis, Tetanus Vaccination: Yes Review of Systems - Review of Systems Constitutional: No symptoms reported EENT: No symptoms reported Cardiovascular: Chest pain Respiratory: Short of breath Gastrointestinal: No symptoms reported Genitourinary: No symptoms reported Female Genitourinary: No symptoms reported Musculoskeletal: Leg swelling Skin: No symptoms reported Neurological/Psychological: Weakness - Baseline Physical Exam - Vital signs Vitals: Temp 99.3 F 12/03/19 23:52 - General General appearance: Appears well, Alert In distress: None - HEENT Head: Normocephalic, Atraumatic Extraocular movements intact: Yes Pupils: PERRL - Respiratory Chest status: Nontender Breath sounds: Normal - Cardiovascular Rhythm: Regular Heart sounds: Normal auscultation - Abdominal Inspection: Obese Distension: No distension Tenderness: Nontender - Extremities General lower extremity: Edema - Nonpitting, Normal temperature - Neurological Neuro grossly intact: Yes Cognition: Normal Orientation: AAOx4 Notes: Able to wiggle toes and plantarflex - Psychological Associated symptoms: Normal affect - Skin Skin Temperature: Warm Course - Re-evaluation Re-evalutation: 39-year-old female brought in by EMS after vague chest tightness/shortness of breath at home, she really does not give much more in the way of description. Additionally gives description of being awake and talking with her daughter, then awakening on EMS stretcher. Given that she was in bed, I discussed with her possibility that potentially she might have just fallen asleep as there is several hours in time And do not suspect syncope as a cause at this time. On exam she is well-appearing, vital signs stable, lungs are clear. She is being worked up for neuromuscular disorder, unable to ambulate however does have intact motor to her legs. Lower suspicion for cardiac etiology, however will undergo EKG and lab evaluation. No hypoxia currently, however given her immobility she would be at risk for a PE, will start with d-dimer 12/04/19 02:00 Positive d-dimer, CTA chest ordered 12/04/19 04:06 Leukocytosis with left shift present. Electrolytes okay. Creatinine okay. Troponin and BNP no elevation. CTA chest is negative for central pulmonary embolism, does comment some lower airspace disease concerning for pneumonia. Given her leukocytosis, will treat as such. 12/04/19 04:10 Updated patient on results of work-up and plan to treat for pneumonia. Have ordered a dose of Augmentin and plan to discharge with same. Encouraged her to have close PCP follow-up and to keep her appointment on for the neuromuscular work-up. Return precautions given, patient stable at time of discharge. - Vital Signs Vital signs: Temp Pulse Resp BP Pulse Ox 99.3 F 21 H 145/81 H 99 12/03/19 23:52 12/04/19 03:26 12/04/19 03:26 12/04/19 03:26 - Laboratory Result Diagrams: 12/04/19 01:20 12/04/19 01:20 Laboratory results interpreted by me: 12/04/19 12/04/19 12/04/19 01:20 01:20 01:20 WBC 16.4 H Hgb 8.5 L Hct 28.0 L MCV 69 L MCH 20.8 L MCHC 30.3 L RDW 24.1 H Lymph % (Auto) 7.1 L Absolute Neuts (auto) 14.2 H Seg Neutrophils % 86.8 H D-Dimer 0.61 H Creatinine 0.27 L Glucose 130 H - Diagnostic Test Radiology reviewed: Image reviewed, Reports reviewed Discharge - Discharge Clinical Impression: Pneumonia Qualifiers: Pneumonia type: due to unspecified organism Laterality: bilateral Lung location: lower lobe of lung Qualified Code(s): J18.9 - Pneumonia, unspecified organism Condition: Stable Disposition: HOME, SELF-CARE Additional Instructions: Please begin course of Augmentin for pneumonia. Please have close follow-up with your primary care doctor. Return to the emergency department for any concerning or worsening symptoms. Prescriptions: Amoxicillin/Potassium Clav [Augmentin 875-125 Tablet] 1 tab PO BID 7 Days #14 tab Referrals: ANTONIO JALLOH MD [Primary Care Provider] - Follow up as needed
[2019-12-04 01:32] LABS: ABSOLUTE BASOPHILS # (AUTO) 0.1 10^3/uL (0.0-0.2); ABSOLUTE EOSINOPHILS # (AUTO) 0.2 10^3/uL (0.0-0.6); ABSOLUTE LYMPHOCYTES (AUTO) 1.2 10^3/uL (0.5-4.7); ABSOLUTE MONOCYTES (AUTO) 0.7 10^3/uL (0.1-1.4); ABSOLUTE NEUT (AUTO) 14.2 10^3/uL (1.7-8.2); BASOPHILS % (AUTO) 0.4 % (0-2); EOSINOPHILS % (AUTO) 1.3 % (0-6); HEMOGLOBIN 8.5 g/dL (12.0-15.5); LYMPHOCYTES % (AUTO) 7.1 % (13-45); MEAN CORPUSCULAR HEMOGLOBIN 20.8 pg (27.0-33.4); MEAN CORPUSCULAR HGB CONC 30.3 g/dL (32.0-36.0); MEAN CORPUSCULAR VOLUME 69 fl (80-97); MONOCYTES % (AUTO) 4.4 % (3-13); PLATELET COUNT 387 10^3/uL (150-450); RED BLOOD COUNT 4.08 10^6/uL (3.72-5.28); RED CELL DISTRIBUTION WIDTH 24.1 % (11.5-14.0); SEGMENTED NEUTROPHILS % (AUTO) 86.8 % (42-78); TOTAL CELLS COUNTED % (AUTO) 100 %; WHITE BLOOD COUNT 16.4 10^3/uL (4.0-10.5)
[2019-12-04 01:46] LABS: ANION GAP 7 (5-19); BLOOD UREA NITROGEN 9 mg/dL (7-20); CALCIUM 9.1 mg/dL (8.4-10.2); CARBON DIOXIDE 29 mmol/L (22-30); CHLORIDE 107 mmol/L (98-107); GLUCOSE 130 mg/dL (75-110); POTASSIUM 3.7 mmol/L (3.6-5.0)
--- NOTE | 2019-12-04 01:56 | RADIOLOGY REPORT (SQ) ---
EXAM: XR Chest, 1 View EXAM DATE/TIME: 12/04/2019 1:25 AM CLINICAL HISTORY: The patient is 39 years old and is Female; SOB TECHNIQUE: Frontal view of the chest. COMPARISON: Chest radiograph from 04/23/2019 FINDINGS: LUNGS: The lungs are mildly hypoinflated. There are minimal bibasilar densities suggesting atelectasis. The upper lungs are clear. PLEURAL SPACE: Unremarkable. No pneumothorax. HEART: Borderline enlargement of the cardiac silhouette, which may be related to AP technique. MEDIASTINUM: Unremarkable. BONES/JOINTS: No acute osseous findings. IMPRESSION: Low lung volumes with minimal bibasilar densities suggesting atelectasis.
[2019-12-04 01:58] LABS: NT PRO BNP 29 pg/mL (<125)
[2019-12-04 02:06] LABS: TROPONIN I < 0.012 ng/mL
[2019-12-04 02:10] LABS: HYPOCHROMASIA 1+; POLYCHROMASIA SLIGHT; TOXIC GRANULATION 1+; TOXIC VACUOLATION PRESENT
[2019-12-04 02:11] LABS: ANISOCYTOSIS 3+; OVALOCYTES SLIGHT; PLATELET COMMENT ADEQUATE; POIKILOCYTOSIS SLIGHT; SCHISTOCYTES SLIGHT; TEAR DROP CELLS SLIGHT
--- NOTE | 2019-12-04 03:46 | RADIOLOGY REPORT (SQ) ---
CLINICAL INDICATION: shortness of breath, +dD(0.61), creat 0.27. eval PE. . TECHNIQUE: CT arteriography was obtained of the chest with multiplanar MIP and/or 3-D angiographic reconstructions. This exam was performed according to our departmental dose-optimization program, which includes automated exposure control, adjustment of the mA and/or kV according to patient size and/or use of iterative reconstruction techniques. COMPARISON: March 26, 2019. CORRELATION: None. FINDINGS: Dilute contrast bolus. Average Hounsfield unit measurement within main pulmonary artery segment of 193. Artifact from venous opacification. Motion artifact There is no central pulmonary embolus. Branch vessels are not adequately opacified. Thoracic aorta is of normal caliber. The heart is prominent but stable. No pericardial effusion. No bulky mediastinal adenopathy. The lungs demonstrate bibasilar airspace disease. This is progressive. The diffuse interstitial prominence seen previously is improved. Detail is obscured by motion. No significant pleural fluid. No pneumothorax. Shotty bilateral axillary lymph nodes, progressive. Visualized abdominal contents demonstrate the gallbladder to surgically absent. Visualized bones are unremarkable. IMPRESSION: Imaging is degraded by patient motion, with resultant artifact. The best possible images were obtained. Dilute contrast bolus. No central pulmonary embolus. Branch vessels cannot be assessed. Progressive patchy bibasilar airspace disease. Pneumonia could have this appearance. Shotty axillary lymph nodes bilaterally. These are nonspecific but progressive from prior .
[2019-12-04] MEDS ORDERED: AMOXICILLIN TR/POT CLAVULANATE 875-125 MG TAB PO ONE (04:10)
[2019-12-04 04:55] VITALS: BP 138/86
--- NOTE | 2019-12-04 17:38 | EKG REPORT ---
SEVERITY:- ABNORMAL ECG - SINUS TACHYCARDIA LVH WITH SECONDARY REPOLARIZATION ABNORMALITY : Confirmed by: Laura Florentino MD 04-Dec-2019 17:36:59
== END 2019-12-04 05:05 | disposition home or self-care (01) ==
LOC: ER 23:51
DX: J18.9 Pneumonia, unspecified organism (principal); R07.89 Other chest pain; R06.02 Shortness of breath; R00.0 Tachycardia, unspecified; R42 Dizziness and giddiness; R53.1 Weakness; J45.909 Unspecified asthma, uncomplicated; R60.0 Localized edema
CPT/HCPCS: 93005; 99285; 36415; 85025; 80048; 84484; 85379; 83880; 71045; 71275; 93010; J3490